=== PATIENT | female | born 1980 | race American Indian/Alaskan Native ===

== ENCOUNTER 2020-11-06 09:40 | Emergency (ER) | payer MEDICAID ==
[2020-11-06] MEDS ORDERED: LORazepam 1 MG Tab PO ONE (09:59)
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
== END 2020-11-06 12:07 | disposition home or self-care (01) ==
LOC: LL.ED 09:40
DX: S09.90XA Unspecified injury of head, initial encounter (principal); S13.4XXA Sprain of ligaments of cervical spine, initial encounter; S00.83XA Contusion of other part of head, initial encounter; S10.93XA Contusion of unspecified part of neck, initial encounter; S50.11XA Contusion of right forearm, initial encounter; S90.511A Abrasion, right ankle, initial encounter; E66.9 Obesity, unspecified; Y04.0XXA Assault by unarmed brawl or fight, initial encounter
CPT/HCPCS: 70450; 70486; 72125; 99284; 99284-25; A9270-GY